=== PATIENT | female | born 1945 | race Caucasian/White ===

== ENCOUNTER 2016-11-04 13:49 | Emergency (ER) | payer MEDICARE ==
[~2016-11-04] VITALS: Ht 165.1 cm; Wt 72.6 kg
[2016-11-04 15:19] LABS: BASO % 0.7 % (0-2); BASO ABSOLUTE COUNT 0.1 tho/cmm (0.0-0.2); EOSINOPHIL ABSOLUTE COUNT 0.7 tho/cmm (0.0-0.7); HCT-HEMATOCRIT 36.8 % (34.0-49.0); HGB-HEMOGLOBIN 12.2 gm/dl (12.0-15.5); IMMATURE GRANULOCYTES ABSOLUTE 0.03 tho/cmm (0-0.03); IMMATURE GRANULOCYTES PERCENT 0.3 % (0-0.3); LYMPH % 31.5 % (20-45); LYMPH ABSOLUTE COUNT 2.7 tho/cmm (0.8-4.5); MCHC MEAN CORPUSCULAR HGB CONC 33.2 % (32.0-36.0); MCV (MEAN CELL VOLUME) 90.6 fl (82.0-96.0); MEAN PLATELET VOLUME 9.5 cmc (9.4-12.4); MONO % 7.9 % (0-12); MONOCYTE ABSOLUTE COUNT 0.7 tho/cmm (0.0-1.2); NEUTROPHIL ABSOLUTE COUNT 4.5 tho/cmm (1.6-8.0); NEUTROPHIL-AUTOMATED 4.5 tho/cmm (1.6-8.0); NEUTROPHILS % 51.6 % (40-80); PLATELET COUNT 295 tho/cmm (150-450); RED BLOOD COUNT 4.06 mil/cmm (4.00-5.20); RED CELL DISTRIBUTION WIDTH 13.8 % (12.4-16.4); WHITE BLOOD COUNT 8.7 tho/cmm (4.0-10.0)
[2016-11-04 15:29] LABS: ANION GAP 11 mmol/L (0-20); BLOOD UREA NITROGEN 8 mg/dl (6-24); CALCIUM 8.6 mg/dl (8.5-10.5); CARBON DIOXIDE-VENOUS 27 mmol/L (22-32); CHLORIDE 111 mmol/l (96-110); CREATININE 0.89 mg/dl (0.50-1.10); GLUCOSE 104 mg/dL (70-110); POTASSIUM 4.2 mmol/L (3.7-5.1); SODIUM 145 mmol/L (135-145); eGFR VALUE FOR BLACK 76 mL/Min
[2016-11-04] MEDS ORDERED: VIBRAMYCIN100 M1 PO (15:36)
[2016-11-04] MEDS ORDERED: DELTASONE20 MG PO (15:36)
[2016-11-04] MEDS ORDERED: FLOVENT HFA1 PUFF INH (15:41)
[2016-11-04] MEDS ORDERED: TRAZODONE HCL100 M1 PO (15:41)
[2016-11-04] MEDS ORDERED: LOSARTAN-HCTZ1 EAC6 PO (15:41)
[2016-11-04] MEDS ORDERED: MOBIC7.5 M2 PO (15:41)
[2016-11-04] MEDS ORDERED: DILANTIN100 M1 PO (15:42)
[2016-11-04] MEDS ORDERED: PROAIR HFA8.5 GM INH (15:42)
[2016-11-04] MEDS ORDERED: AZELASTINE137 MCG/01 (15:43)
[2016-11-04] MEDS ORDERED: EFFEXOR XR150 M1 PO (15:43)
[2016-11-04] MEDS ORDERED: OMEPRAZOLE40 M2 PO (15:43)
[2016-11-04] MEDS ORDERED: ANORO ELLIPTA1 EAC1 INH (15:43)
[2016-11-04] MEDS ORDERED: NORCO 5-325 TA1 EACH PO (15:44)
[2016-11-04] MEDS ORDERED: XANAX0.5 M1 PO (15:44)
[2016-11-04] MEDS ORDERED: KLOR-CON 1010 ME1 PO (15:44)
[2016-11-04] MEDS ORDERED: SPIRIVA RESPIMAT4 G1 INH (15:44)
[2016-11-04] MEDS ORDERED: HYZAAR 100-12.1 EACH PO (16:07)
== END 2016-11-04 16:14 ==
LOC: EDMED 13:49
PROVIDERS: Nurse Practitioner Family
DX: J44.1 Chronic obstructive pulmonary disease with (acute) exacerbation (principal); I10 Essential (primary) hypertension; Z90.49 Acquired absence of other specified parts of digestive tract; Z90.710 Acquired absence of both cervix and uterus; Z87.891 Personal history of nicotine dependence; Z79.51 Long term (current) use of inhaled steroids; Z79.899 Other long term (current) drug therapy